=== PATIENT | female | born 1980 | race Caucasian/White ===

== ENCOUNTER 2017-05-03 01:40 | Emergency (ER) | payer MEDICARE ==
[~2017-05-03] VITALS: Ht 165.1 cm; Wt 98.4 kg
[~2017-05-03 01:40] MED LIST: ALPR0.5T6 PO; ALPR2TAB4 PO; ARIP5TAB13 PO; AZEL137S3 NS; ESCITALOPRAM OX10 MG PO; FLUT16SP NS; GABA-585 PO; HYDR-2762 PO; HYDR200T5 PO; LAMO250T2 PO; LEVO125T5 PO; LORA10TA3 PO; MEDR150D3 IM; OMEP40CA5 PO; TEMA30CA PO; TIZA4TAB PO
--- NOTE | 2017-05-03 01:58 | PHYS DOC ---
Past Medical History Past Medical History: Bipolar, Migraines Additional Past Medical Histor: Connective Tissue disorder Past Surgical History: Hysterectomy Smoking: Cigarettes Drug Use: Marijuana Social History Narrative: Lives with parents Adult General Chief Complaint Chief Complaint: MULTIPLE COMPLAINTS HPI HPI Patient is a 36 year old female who presents with headache and dizziness. She lives with her parents "who both drink before they go to bed so they didn't wake up." She has chronic headaches but has been doing well she states. Today she developed a headache. She felt dizzy with it as well. She took her Xanax and smoked some weed and she feels worse. She feels like she has difficulty writing and walking. She denies visual change or loss of vision. No nausea or vomiting. She states that it wasn't a new bag of weed "it's one I've been using for a while." She was admitted to [facility] last week "for shortness of air." She states that they did cervical spine imaging as well. She is followed by DR London Younger. No recent travel. Review of Systems Review of Systems Constitutional: Denies fever or chills Eyes: Denies change in visual acuity, redness, or eye pain HENT: Denies nasal congestion or sore throat Respiratory: Denies cough or shortness of breath Cardiovascular: No additional information not addressed in HPI GI: Denies abdominal pain, nausea, vomiting, bloody stools or diarrhea : Denies dysuria or hematuria Musculoskeletal: Denies back pain or joint pain Integument: Denies rash or skin lesions Neurologic: POS headache, No focal weakness or sensory changes Allergies Allergies Allergies Coded Allergies Type Severity Reaction Last Updated Verified oxcarbazepine Allergy Intermediate Rash 01/22/15 Yes ziprasidone Allergy Intermediate Nausea/Vomiting, and migraines 01/22/15 Yes Physical Exam Physical Exam Constitutional: Well developed, well nourished, no acute distress, non-toxic appearance. Ambulated in the ED with EMS without difficulty. HENT: Normocephalic, atraumatic, TM clear bilaterally; bilateral external ears normal, oropharynx moist, no oral exudates, nose normal. Eyes: PERRLA, EOMI, conjunctiva normal, no discharge. Neck: Normal range of motion, no tenderness, supple, no stridor. Cardiovascular:Heart rate regular rhythm, no murmur Lungs & Thorax: Bilateral breath sounds clear to auscultation Abdomen: Bowel sounds normal, soft, no tenderness, no masses, no pulsatile masses. Skin: Warm, dry, no erythema, no rash. Back: No tenderness, no CVA tenderness. Extremities: No tenderness, no cyanosis, no clubbing, ROM intact, no edema. Neurologic: Alert and oriented X 3, normal motor function, normal sensory function, no focal deficits noted. Psychologic: Affect flat. Patient talking non stop with tangential thought. Current Patient Data Vital Signs Vital Signs Date Time Temp Pulse Resp B/P (MAP) Pulse Ox O2 Delivery O2 Flow Rate FiO2 05/03/17 01:45 99.5 113 20 137/94 (108) 97 Room Air 99.5 Lab Values Laboratory Tests Test 05/03/17 02:00 Urine Collection Type Unknown Urine Color Yellow Urine Clarity Clear Urine pH 6.5 Urine Specific Blum <=1.005 Urine Protein Negative mg/dL (NEG-TRACE) Urine Glucose (UA) Negative mg/dL (NEG) Urine Ketones (Stick) Trace mg/dL (NEG) Urine Blood Negative (NEG) Urine Nitrite Negative (NEG) Urine Bilirubin Negative (NEG) Urine Urobilinogen Dipstick 0.2 mg/dL (0.2 mg/dL) Urine Leukocyte Esterase Negative (NEG) Urine RBC Occ /HPF (0-2) Urine WBC 1-4 /HPF (0-4) Urine Squamous Epithelial Cells Few /LPF Urine Bacteria Few /HPF (0-FEW) Urine Mucus Slight /LPF Radiology/Procedures Radiology/Procedures [facility] [address] [place] [address] IMAGING REPORT Signed PATIENT: NATHANAEL CLEMENTS ACCOUNT: [id number] : 1980 LOCATION: ER AGE: 36 SEX: F EXAM STATUS: REG ER ORD. PHYSICIAN: DANISH SIERRA MD REASON: migraine headache and dizziness (hysterectomy) PROCEDURE: CT HEAD WO CONTRAST CT head without contrast TECHNIQUE: [address] imaging skull base to vertex. HISTORY: Migraine headache and dizziness FINDINGS: No intracranial hemorrhage, mass, hydrocephalus or infarction. Orbits, mastoids, paranasal sinuses and bones are unremarkable. IMPRESSION: No acute intracranial CT abnormality. Exposure: One or more of the following individualized dose reduction techniques were utilized for this examination: 1. Automated exposure control 2. Adjustment of the mA and/or kV according to patient size 3. Use of iterative reconstruction technique Electronically signed by: Olman Sorensen MD (05/03/2017 2:24 AM) [facility] DICTATED and SIGNED BY: OLMAN SORENSEN MD DATE: 05/03/17219 CC: DANISH SIERRA MD; RAMONA MONET md ~ Course & Med Decision Making Course & Med Decision Making Met patient upon arrival by EMS. She is talking nonstop and requiring frequent focusing. She is alert though and oriented to person, place, time and events. At 0235 AM: CT head negative. UA clear. I have spoken with the patient and/or caregivers. I have explained the patient' s condition, diagnosis and treatment plan based on the information available to me at this time. I have answered the patient's and/or caregiver's questions and addressed any concerns. The patient and/or caregivers have as good an understanding of the patient's diagnosis, condition and treatment plan as can be expected at this point. The patient's condition is stable and appropriate for discharge from the emergency department. The patient will pursue further outpatient evaluation with the primary care physician or other designated or consulting physician as outlined in the discharge instructions. The patient and/or caregivers are agreeable to this plan of care and follow-up instructions have been explained in detail. The patient and/or caregivers have received these instructions in written format and have expressed an understanding of the discharge instructions. The patient and/or caregivers are aware that any significant change in condition or worsening of symptoms should prompt an immediate return to this or the closest emergency department or a call to 911. Dragon Disclaimer Dragon Disclaimer This electronic medical record was generated, in whole or in part, using a voice recognition dictation system. Departure Departure Impression: Primary Impression: Headache Disposition: 01 HOME, SELF-CARE Condition: STABLE Referrals: RAMONA MONET md (PCP) Patient Instructions: General Headache Without Cause Additional Instructions: Call Dr Younger in the am to set up an appointment for re-evaluation. Problem Qualifiers Primary Impression: Headache Headache type: unspecified Headache chronicity pattern: unspecified pattern Intractability: not intractable Qualified Codes: R51 - Headache DANISH SIERRA MD May 03, 2017 01:57
[2017-05-03 02:12] LABS: BILIRUBIN,URINE NEGATIVE (NEG); GLUCOSE,URINE NEGATIVE (NEG); NITRITE,URINE NEGATIVE (NEG); PH,URINE 6.5; PROTEIN,URINE NEGATIVE (NEG-TRACE); UROBILINOGEN,URINE 0.2 mg/dL (0.2 mg/dL)
--- NOTE | 2017-05-03 02:27 | RAD ---
CT head without contrast TECHNIQUE: [address] imaging skull base to vertex. HISTORY: Migraine headache and dizziness FINDINGS: No intracranial hemorrhage, mass, hydrocephalus or infarction. Orbits, mastoids, paranasal sinuses and bones are unremarkable. IMPRESSION: No acute intracranial CT abnormality. Exposure: One or more of the following individualized dose reduction techniques were utilized for this examination: 1. Automated exposure control 2. Adjustment of the mA and/or kV according to patient size 3. Use of iterative reconstruction technique Electronically signed by: Jordon Sorensen MD (05/03/2017 2:24 AM) [facility]
[2017-05-03 02:30] VITALS: BP 111/71
[2017-05-03 02:30] LABS: BACTERIA,URINE FEW /HPF (0-FEW); RBC,URINE OCC /HPF (0-2); SQUAMOUS EPITHELIAL CELL,UR FEW /LPF
== END 2017-05-03 02:58 | disposition home or self-care (01) ==
LOC: ER 01:40
DX: R51 Headache (principal); R42 Dizziness and giddiness; G43.909 Migraine, unspecified, not intractable, without status migrainosus; F31.9 Bipolar disorder, unspecified; F17.210 Nicotine dependence, cigarettes, uncomplicated; Z88.8 Allergy status to other drugs, medicaments and biological substances
CPT/HCPCS: 70450; 81001; 99285-25